=== PATIENT | female | born 1940 | race Caucasian/White ===

== ENCOUNTER 2016-08-08 09:02 | Day surgery (SDC) | payer MEDICARE, OTHER ==
--- NOTE | ~2016-08-08 | EGD ---
EGD REPORT [facility] [address] [place]. [id number] NAME: RIYA SANTOS : [birth year] STATUS : REG [facility] [place] [facility] [place] PAT#: [id number] AGE: 76 ADM/REG DATE : 08/08/16 MR#: [id number] REPORT SERV DATE: 08/08/16 DICTATED BY: ALAN PALACIOS DATE: 08/08/16 REPORT STATUS : Draft TRANSCRIBED BY: [employer] DATE: 08/08/16 [facility] Patient Name: Riya Santos Date of : 1940 Attending MD: ALAN PALACIOS MD Procedure Date No Time: 08/08/2016 Procedure: Colonoscopy Indications: Screening for colorectal malignant neoplasm Referring MD: PARVIZ VENTURA Medicines: as per anesthesia Complications: No immediate complications. Procedure: Pre-Anesthesia Assessment: - ASA Grade Assessment: II - A patient with mild systemic disease. After I obtained informed consent, the scope was passed under direct vision. Throughout the procedure, the patient's blood pressure, pulse, and oxygen saturations were monitored continuously. The PCF [id number] was introduced through the anus and advanced to the cecum, identified by appendiceal orifice and ileocecal valve. The colonoscopy was somewhat difficult due to restricted mobility of the colon, significant looping and a tortuous colon. The patient tolerated the procedure. The quality of the bowel preparation was fair. Findings: The perianal and digital rectal examinations were normal. Two sessile polyps were found in the sigmoid colon. The polyps were 4 to 5 mm in size. These polyps were removed with a jumbo cold forceps. Resection and retrieval were complete. A sessile polyp was found in the rectum. The polyp was 5 mm in size. The polyp was removed with a jumbo cold forceps. Resection and retrieval were complete. A few small and large-mouthed diverticula were found in the transverse colon. Internal hemorrhoids were found during endoscopy and were mild. Impression: - Two 4 to 5 mm polyps in the sigmoid colon. Resected and retrieved. - One 5 mm polyp in the rectum. Resected and retrieved. - Diverticulosis in the transverse colon. - Internal hemorrhoids. Recommendation: - Await pathology results. EGD REPORT [address] [address] NAME: RIYA SANTOS : [birth year] STATUS : REG [facility]#: [id number] AGE: 76 ADM/REG DATE : 08/08/16 MR#: [id number] REPORT SERV DATE: 08/08/16 DICTATED BY: ALAN PALACIOS. DATE: 08/08/16 REPORT STATUS : Draft TRANSCRIBED BY: [employer] DATE: 08/08/16 Procedure Code(s): --- Professional --- 77965, Colonoscopy, flexible, proximal to splenic flexure; with biopsy, single or multiple Diagnosis Code(s): --- Professional --- K62.1, Rectal polyp D12.5, Benign neoplasm of sigmoid colon K64.8, Other hemorrhoids K57.30, Diverticulosis of large intestine without perforation or abscess without bleeding Z12.11, Encounter for screening for malignant neoplasm of colon CPT copyright 2013 [employer]. All rights reserved. The codes documented in this report are preliminary and upon braille coder review may be revised to meet current compliance requirements. ALAN PALACIOS MD 08/08/2016 12:47 PM This report has been signed electronically. Number of Addenda: 0 Note Initiated On: 08/08/2016 12:03 PM Scope Withdrawal Time 0 hours 11 minutes 13 seconds [id number] [place] [address]
[~2016-08-08 09:02] MED LIST: ASAB PO; BIOTIN10 MG PO; COQ-1010 MG PO
== END 2016-08-08 23:59 | disposition home health service (06) ==
LOC: DMU 09:02
PROVIDERS: Internal Medicine Gastroenterology
PROC: 0DBP8ZX Excision of Rectum, Via Natural or Artificial Opening Endoscopic, Diagnostic (ICD-10-PCS; 2016-08-08)
PROC: 0DBN8ZX Excision of Sigmoid Colon, Via Natural or Artificial Opening Endoscopic, Diagnostic (ICD-10-PCS; principal; 2016-08-08 10:30)
DX: Z12.11 Encounter for screening for malignant neoplasm of colon (principal); K62.1 Rectal polyp; K63.5 Polyp of colon; K57.30 Diverticulosis of large intestine without perforation or abscess without bleeding; K64.8 Other hemorrhoids; Z88.5 Allergy status to narcotic agent; Z88.8 Allergy status to other drugs, medicaments and biological substances; Z98.890 Other specified postprocedural states
CPT/HCPCS: 88305; J2250